=== PATIENT | female | born 1985 | race African-American/Black ===

== ENCOUNTER 2017-02-19 09:54 | Emergency (ER) | payer OTHER ==
[2017-02-19 09:59] VITALS: BP 122/82; PULSE 78; TEMP 98.3; BMI 29.2
[2017-02-19] MEDS ORDERED: METOCLOPRAMIDE HCL INJECTION 10 MG/2 ML VIAL IVPB ONE (11:31)
[2017-02-19] MEDS ORDERED: KETOROLAC TROMETHAMINE 30 MG/1 ML VIAL IVPUSH ONE (11:31)
[2017-02-19] MEDS ORDERED: SODIUM CHLORIDE 1,000 ML IV STA (11:31)
--- NOTE | 2017-02-19 11:49 | PDOC ---
History of Present Illness <JaredmiltonLianna - Last Filed: 02/19/17 15:10> - History of Present Illness Initial Comments: 02/19/17 11:45 " The patient is a 32 year old female, with significant past medical history of migraines, who presents to the emergency room complaining of 3 days of a frontal headache. The headache feels like constant pressure. It is exacerbated with movement, sneezing, and coughing. She reports some associated nausea this morning, but denies vomiting. Denies photophobia. She has been taking extra strength tylenol with mild relief. Pt states that her typical migraines are usually one sided, but this one is both sides. However, it is not more severe than her usual migraines, and she has had migraines for this length of time in the past. Pt denies neck pain/stiffness. Denies F/C. She saw a neurologist last year and had a CT scan that was unremarkable. She has not followed up since. Denies head trauma, LOC. Denies vision changes. Denies vomiting, fever, chills. Denies recent illness. Denies nasal congestion. Denies chest pain, SOB. " <Cirilo Wright - Last Filed: 02/19/17 15:42> - General Chief Complaint: Pain Stated Complaint: HEAD PRESSURE Time Seen by Provider: 02/19/17 11:05 Past History <JaredmiltonLianna - Last Filed: 02/19/17 15:10> - Past Medical History Psychiatric Problems: Yes (DEPRESSION) Other medical history: MIGRAINES - Suicide/Smoking/Psychosocial Hx Smoking History: Current every day smoker Number of Cigarettes Smoked Daily: 2 Information on smoking cessation initiated: No Hx Alcohol Use: Yes (SOCIAL) Drug/Substance Use Hx: No <Cirilo Wright - Last Filed: 02/19/17 15:42> - Past Medical History Allergies/Adverse Reactions: Allergies Allergy/AdvReac Type Severity Reaction Status Date / Time No Known Allergies Allergy Verified 02/19/17 09:59 Home Medications: Ambulatory Orders NK [No Known Home Medication] 02/19/17 Review of Systems - Review of Systems Comments:: 02/19/17 11:49 "GENERAL/CONSTITUTIONAL: No fever or chills. No weakness. HEAD, EYES, EARS, NOSE AND THROAT: No change in vision. No ear pain or discharge. No sore throat. CARDIOVASCULAR: No chest pain or shortness of breath. RESPIRATORY: No cough, wheezing, or hemoptysis. GASTROINTESTINAL: +nausea. No vomiting, diarrhea or constipation. GENITOURINARY: No dysuria, frequency, or change in urination. MUSCULOSKELETAL: No joint or muscle swelling or pain. No neck or back pain. SKIN: No rash NEUROLOGIC: +headache. No vertigo, loss of consciousness, or change in strength/ sensation. ENDOCRINE: No increased thirst. No abnormal weight change. HEMATOLOGIC/LYMPHATIC: No anemia, easy bleeding, or history of blood clots. ALLERGIC/IMMUNOLOGIC: No hives or skin allergy." <Cirilo Wright - Last Filed: 02/19/17 15:42> *Physical Exam - Vital Signs Last Vital Signs Temp Pulse Resp BP Pulse Ox 98.3 F 78 20 122/82 100 02/19/17 09:56 02/19/17 09:56 02/19/17 09:56 02/19/17 09:56 02/19/17 09:56 <Lianna Dutton - Last Filed: 02/19/17 15:10> - Vital Signs Last Vital Signs Temp Pulse Resp BP Pulse Ox 98.3 F 78 20 122/82 100 02/19/17 09:56 02/19/17 09:56 02/19/17 09:56 02/19/17 09:56 02/19/17 09:56 - Physical Exam Comments: 02/19/17 11:49 "GENERAL: Awake, alert, and fully oriented, in no acute distress HEAD: No signs of trauma EYES: PERRLA, EOMI, sclera anicteric, conjunctiva clear ENT: Auricles normal inspection, hearing grossly normal, nares patent, oropharynx clear without exudates. Moist mucosa NECK: Nontender, no stepoffs, Normal ROM, supple, no lymphadenopathy, JVD, or masses LUNGS: Breath sounds equal, clear to auscultation bilaterally. No wheezes, and no crackles HEART: Regular rate and rhythm, normal S1 and S2, no murmurs, rubs or gallops ABDOMEN: Soft, nontender, normoactive bowel sounds. No guarding, no rebound. No masses EXTREMITIES: Normal range of motion, no edema. No clubbing or cyanosis. No cords, erythema, or tenderness NEUROLOGICAL: Cranial nerves II through XII intact. cerebellar tests normal, visual antony intact, 5/5 strength and sensation in all extremities, Normal speech, normal gait SKIN: Warm, Dry, normal turgor, no rashes or lesions noted. " <Cirilo Wright - Last Filed: 02/19/17 15:42> ED Treatment Course - LABORATORY CBC & Chemistry Diagram: 02/19/17 11:55 02/19/17 11:55 - ADDITIONAL ORDERS Additional order review: Laboratory Results 02/19/17 02/19/17 12:24 11:55 Sodium 138 Potassium 4.1 Chloride 102 Carbon Dioxide 29 Anion Gap 7 L BUN 11 Creatinine 0.8 Creat Clearance w eGFR > 60 Random Glucose 81 Calcium 9.4 Total Bilirubin 0.5 AST 11 L ALT 19 Alkaline Phosphatase 84 Total Protein 7.9 Albumin 4.0 Urine Color Dkyellow Urine Appearance Slcloudy Urine pH 5.0 Urine Protein Negative Urine Glucose (UA) Negative Urine Ketones Trace H Urine Blood Negative Urine Nitrite Negative Urine Bilirubin Negative Urine Urobilinogen Negative Urine HCG, Qual Negative 02/19/17 11:55 RBC 4.23 MCV 99.0 H MCHC 33.5 RDW 12.7 MPV 8.9 Neutrophils % 48.1 Lymphocytes % 41.2 H Monocytes % 8.5 Eosinophils % 1.5 Basophils % 0.7 - RADIOLOGY Radiograph Interpretation: 02/19/17 15:10 EXAM#: TYPE/EXAM: RESULT: [id number] CT/HEAD CT WITHOUT CONTRAST HISTORY PROVIDED: Headache TECHNIQUE: Sequential axial images were obtained from the base of the skull to the vertex. There is no evidence of acute intracranial hemorrhage, mass lesions or infarctions. The visualized paranasal sinuses and mastoid air cells are clear. IMPRESSION: Normal CT scan of the head with no evidence of acute intracranial pathology. Reported By: Brett Gates MD 02/19/17 1506 - Medications Given in the ED: ED Medications Discontinued Medications Generic Name Dose Route Start Last Admin Trade Name Freq PRN Reason Stop Dose Admin Sodium Chloride 1,000 mls @ 1,000 mls/hr 02/19/17 11:31 02/19/17 12:01 Normal Saline - IV 02/19/17 12:30 1,000 mls/hr ASDIR STA Administration Ketorolac Tromethamine 15 mg 02/19/17 11:31 02/19/17 12:01 Toradol Injection - IVPUSH 02/19/17 11:32 15 mg ONCE ONE Administration Metoclopramide HCl 10 mg 02/19/17 11:31 02/19/17 12:01 Reglan Injection - IVPB 02/19/17 11:32 10 mg ONCE ONE Administration <Lianna Dutton - Last Filed: 02/19/17 15:10> - LABORATORY CBC & Chemistry Diagram: 02/19/17 11:55 02/19/17 11:55 <Cirilo Wright - Last Filed: 02/19/17 15:42> Medical Decision Making - Medical Decision Making 02/19/17 11:43 32 F with h/o migraine headaches presenting with 3 days of headache. Likely atypical migraine. Pt with no red flags for SAH or meningitis - NO thunderclap, worst headache of life, neck stiffness, or fevers. Neuro exam is completely normal, making acute intracranial process unlikely. - Labs, UA, UPT - IVF, reglan, toradol 02/19/17 15:40 CTH negative Pt reassessed after meds - now has complete resolution of headache. Pt ambulatory with steady gait. Normal neuro exam. Stable for DC. <Cirilo Wright - Last Filed: 02/19/17 15:42> *DC/Admit/Observation/Transfer - Attestations Scribe Attestion: 02/19/17 14:34 Documentation prepared by JEANETTE Roberto, acting as electromedical service engineer for Cirilo Wright MD. <Lianna Dutton - Last Filed: 02/19/17 15:10> - Attestations Physician Attestion: 02/19/17 15:42 I, Dr. Cirilo Wright MD, attest that this document has been prepared under my direction and personally reviewed by me in its entirety. I further attest, that it accurately reflects all work, treatment, procedures and medical decision -making performed by me. <Cirilo Wright - Last Filed: 02/19/17 15:42> Diagnosis at time of Disposition: Headache - Discharge Dispostion Disposition: HOME - Referrals Referrals: STAFF,NOT ON [Primary Care Provider] - Jose Boogie DO [Staff Physician] - - Patient Instructions Printed Discharge Instructions: DI for Headache Additional Instructions: Please follow up with a neurologist within 1 week for further evaluation of your headaches. Take tylenol or motrin every 8 hours as needed for headaches. Do not use more than instructed. If you experience worsening pain, fevers, neck stiffness, nausea, vomiting, or any other concerning symptoms, return to the ER immediately.
[2017-02-19] MEDS ORDERED: SUMAtriptan SUCCINATE 25 MG TABLET PO ONE (11:51)
[2017-02-19] MEDS ORDERED: KETOROLAC TROMETHAMINE 15 MG/ML VIAL ONE (11:58)
[2017-02-19] MEDS ORDERED: METOCLOPRAMIDE HCL INJECTION 10 MG/2 ML VIAL ONE (11:58)
[2017-02-19] MEDS ORDERED: SUMAtriptan SUCCINATE 50 MG TABLET ONE (12:09)
[2017-02-19] MEDS ORDERED: SUMAtriptan SUCCINATE 50 MG TABLET PO SCH (12:15)
[2017-02-19 12:36] LABS: ALK PHOS 84 U/L (45-117); ANION GAP 7 (8-16); BILIRUBIN,TOTAL 0.5 mg/dL (0.2-1.0); CALCIUM 9.4 mg/dL (8.5-10.1); CO2 29 mmol/L (21-32); CREATININE 0.8 mg/dL (0.55-1.02); GLUCOSE,RANDOM 81 mg/dL (74-106); SGOT/AST 11 U/L (15-37); SGPT/ALT 19 U/L (12-78); TOT PROT 7.9 g/dl (6.4-8.2)
[2017-02-19 12:46] LABS: URINE APPEARANCE SLCLOUDY; URINE BILIRUBIN NEGATIVE (NEGATIVE); URINE BLOOD NEGATIVE (NEGATIVE); URINE COLOR DKYELLOW; URINE GLUCOSE (UA) NEGATIVE (NEGATIVE); URINE KETONE TRACE (NEGATIVE); URINE LEUK ESTERASE NEGATIVE (NEGATIVE); URINE NITRITE NEGATIVE (NEGATIVE); URINE PROTEIN NEGATIVE (NEGATIVE); URINE UROBILINOGEN NEGATIVE mg/dL (0.2-1.0)
[2017-02-19 12:49] LABS: BASOPHIL 0.7 % (0-2.0); EOSINOPHIL 1.5 % (0-4.5); MCH 33.2 pg (25.7-33.7); MCHC 33.5 g/dl (32.0-36.0); MEAN PLT VOLUME 8.9 fl (7.5-11.1); NEUTROPHILS 48.1 % (42.8-82.8); PLATELET COUNT 250 K/MM3 (134-434); RDW 12.7 % (11.6-15.6); WHITE BLOOD COUNT 7.4 K/mm3 (4.0-10.0)
[2017-02-19] MEDS ORDERED: DEXAMETHASONE SOD PHOSPHATE 10 MG/1 ML VIAL IVPUSH ONE (13:30)
[2017-02-19] MEDS ORDERED: MAGNESIUM SULF 50% (8.12 MEQ/2 ML-1 GM VIAL) IVPB ONE (13:30)
[2017-02-19] MEDS ORDERED: DEXAMETHASONE SOD PHOSPHATE 10 MG/1 ML VIAL ONE (15:25)
== END 2017-02-19 16:31 | disposition home or self-care (01) ==
LOC: JER 09:54
PROC: 3E0333Z Introduction of Anti-inflammatory into Peripheral Vein, Percutaneous Approach (ICD-10-PCS; principal; 2017-02-19)
PROC: 3E033NZ Introduction of Analgesics, Hypnotics, Sedatives into Peripheral Vein, Percutaneous Approach (ICD-10-PCS; 2017-02-19)
PROC: 3E033GC Introduction of Other Therapeutic Substance into Peripheral Vein, Percutaneous Approach (ICD-10-PCS; 2017-02-19)
DX: R51 Headache (principal); F17.210 Nicotine dependence, cigarettes, uncomplicated
CPT/HCPCS: 36415; 70450-TC; 80053; 81003; 84703; 85025; 99282-25